=== PATIENT | male | born 1960 | race Caucasian/White ===

== ENCOUNTER 2016-05-05 12:06 | Emergency (ER) | payer OTHER ==
[2016-05-05 12:25] VITALS: BP 150/96; PULSE 85; RESP 20; TEMP 98.2; O2SAT 94
--- NOTE | 2016-05-05 13:58 | UCPHY ---
H & P Time Seen by Provider: 05/05/16 13:56 Patient Type: New HPI/ROS: Chief complaint. Back pain HPI. 56-year-old male with low back pain for 1 week. Some radiation into the left hip and left upper thigh. It hurts to move and bend over. No trauma but had been doing some work on his daughter scar in awkward positions at the onset. No leg weakness. No bowel or bladder symptoms. Has had previous similar low back pain. No previous back surgery. Using ibuprofen with inadequate relief ROS Constitutional. no fever/chills, no weakness Eyes. no problems with vision ENT. no sore throat, no nasal drainage Cardiovascular. no chest pain Respiratory. no shortness of breath, no cough Abdominal. no abdominal pain, no nausea/vomiting, no diarrhea . no problems urinating MS. Low back pain Skin. no rash Lymph. no swollen glands Neuro. no headache, no dizziness, no difficulty walking or with speech Past Medical/Surgical History: Hypertension Hip replacement Social History: , nonsmoker, no alcohol Smoking Status: Never smoked Physical Exam: General Appearance: Alert well-developed obese male stable vital signs moderate distress Eyes: Pupils equal and round no pallor or injection. ENT, Mouth: Mucous membranes are moist. Respiratory: There are no retractions, lungs are clear to auscultation. Cardiovascular: Regular rate and rhythm. Gastrointestinal: Abdomen is soft and nontender, no masses, bowel sounds normal. Neurological: Awake and alert, sensory and motor exams grossly normal. Straight leg raising causes pain at 30 degrees on the left. Negative on the right. Deep tendon reflexes are symmetrical. Great toe strength is normal. Sensation is normal Skin: Warm and dry, no rashes. Musculoskeletal: Neck is supple nontender. Tenderness to palpation in the left paralumbar muscle area and left hip. No tenderness over the lumbar spine. Extremities symmetrical, full range of motion. Psychiatric: Patient is oriented X 3, there is no agitation. Constitutional: Initial Vital Signs Temperature (C) 36.8 C 05/05/16 12:23 Heart Rate 85 05/05/16 12:23 Respiratory Rate 20 05/05/16 12:23 Blood Pressure 150/96 H 05/05/16 12:23 O2 Sat (%) 94 05/05/16 12:23 O2 Delivery Mode Room Air Allergies/Adverse Reactions: No Known Allergies Allergy (Verified 11/03/11 13:36) Home Medications: Medication Instructions Recorded CYCLOBENZAPRINE HCL [Flexeril] 5 mg PO TIDPRN PRN #10 tab 05/05/16 Hydrocodone/APAP 5/325 [[place] 1 each PO Q4-6PRN PRN #14 tab 05/05/16 5/325 (*)] Lisinopril 05/05/16 ZYRTEC 05/05/16 Medical Decision Making ED Course/Re-evaluation: Patient remains stable. Patient and I discussed diagnosis, treatment plan, criteria for return, importance of follow-up and further evaluation. He expresses understanding and agreement Differential Diagnosis: This appears to be musculoskeletal low back pain. It began with awkward positions. There has been no trauma to suggest fracture. He does not have bowel or bladder symptoms or motor weakness which would suggest cauda equina syndrome. Departure - Departure Disposition: Home, Routine, Self-Care Clinical Impression: Low back pain Qualifiers: Chronicity: acute Back pain laterality: left Sciatica presence: with sciatica Sciatica laterality: sciatica of left side Qualified Code(s): M54.42 - Lumbago with sciatica, left side Condition: Good Instructions: Low Back Strain (ED) Additional Instructions: Heat to your low back. Ibuprofen 800 mg every 6 hours. Hydrocodone for pain. Flexeril as muscle relaxer. Return for leg weakness, bowel or bladder symptoms. Recheck with your regular physician Dr. Shani Hopson in 2-3 days if not improved Referrals: NONE *PRIMARY CARE P,. [Unknown] - As per Instructions Prescriptions: CYCLOBENZAPRINE HCL [Flexeril] 5 mg PO TIDPRN PRN #10 tab PRN Reason: Spasms Hydrocodone/APAP 5/325 [[place] 5/325 (*)] 1 each PO Q4-6PRN PRN #14 tab PRN Reason: Pain, Moderate - PQRS PQRS Measurement: 134: Depression screening and followup, PRIME MD-PHQ2 (12 years and older) Over the last 2 weeks, how often have you been bothered by any of the following problems? 1. Feeling down, depressed, or hopeless? 2. Little interest or pleasure in doing things? Patient answered no to both 1 and 2 130: Documentation of medications. Reviewed all patient medications, doses, route and frequency. 226: Do you smoke? No.
== END 2016-05-05 14:15 | disposition home or self-care (01) ==
LOC: CED 12:06
DX: M54.42 Lumbago with sciatica, left side (principal)
CPT/HCPCS: 99203-PO; G0463-PO